=== PATIENT | female | born 2000 | race Caucasian/White ===

== ENCOUNTER → 2021-09-05 | Emergency (ER) | payer BC | END | disposition left against medical advice (07) | LOC: ER 17:54 | DX: R31.9 Hematuria, unspecified (principal); Z53.21 Procedure and treatment not carried out due to patient leaving prior to being seen by health care provider ==

== ENCOUNTER 2021-09-19 23:18 | Emergency (ER) | payer BC ==
[~2021-09-19] VITALS: Ht 162.6 cm; Wt 62.3 kg
--- NOTE | 2021-09-19 23:43 | PHYS DOC ---
Past History Past Medical History: Constipation General Adult HPI: HPI: ".. I ve been having some flank pain.. here on the Lt. and I noticed some blood in my urine.... I have been taking that pill that turns your urine red orange.. it been off and on the past week.. here on Lt. .." Patient is a 20 year old female who presents with above hx and complaints of Lt. flank pain. Pain has been intermittent over the past week. Patient has noted some hematuria. There is a family history of kidney stones with grandfather and her twin sister.. Patient denies any vaginal discharge. Patient denies any trauma. No recent travel. No history immunosuppression. 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 Mother is at bedside states she has had no rmal development since that time. Patient normally healthy. Review of Systems: Review of Systems: Constitutional: Denies fever or chills Eyes: Denies change in visual acuity HENT: Denies nasal congestion or sore throat Respiratory: Denies cough or shortness of breath Cardiovascular: Denies chest pain or edema GI: Complains of left flank abdominal pain, and nausea. Denies, vomiting, bloody stools or diarrhea : Denies dysuria Musculoskeletal: Complains of left flank back pain or joint pain Integument: Denies rash Neurologic: Denies headache, focal weakness or sensory changes Endocrine: Denies polyuria or polydipsia Lymphatic: Denies swollen glands Psychiatric: Denies depression or anxiety Family History: Family History: Grandfather has kidney stones Current Medications: Current Meds: See nursing for home meds Allergies: Allergies: No known drug allergies Physical Exam: PE: Constitutional: Well developed, well nourished, no acute distress, non-toxic appearance. [] HENT: Normocephalic, atraumatic, bilateral external ears normal, oropharynx moist, no oral exudates, nose normal. [] Eyes: PERRLA, EOMI, conjunctiva normal, no discharge. [] Neck: Normal range of motion, no tenderness, supple, no stridor. [] Cardiovascular:Heart rate regular rhythm, no murmur [] Lungs & Thorax: Bilateral breath sounds clear to auscultation [] Abdomen: Bowel sounds decreased, soft, no tenderness, no masses, no pulsatile m asses. No focal areas of rebound. Mild left flank tenderness on percussion. No true rebound pain. Skin: Warm, dry, no erythema, no rash. [] Back: No tenderness, no CVA tenderness. [] Extremities: No tenderness, no cyanosis, no clubbing, ROM intact, no edema. No psoas sign. Neurologic: Alert and oriented X 3, normal motor function, normal sensory function, no focal deficits noted. [] Psychologic: Affect anxious, judgement normal, mood normal. [] EKG: EKG: [] Radiology/Procedures: Radiology/Procedures: [[address] [address] IMAGING REPORT Signed PATIENT: ABDOUL BUTLER MACCOUNT: [id number] : 2000 LOCATION: ER AGE: 20 SEX: F EXAM STATUS: REG ER ORD. PHYSICIAN: ROMA RICHARDSON MD REASON: Renal colic Lt. PROCEDURE: CT ABDOMEN PELVIS WO CONTRAST EXAM: CT Abdomen and Pelvis without IV contrast CLINICAL HISTORY: Left flank pain. COMPARISON: none TECHNIQUE: Helical CT of the abdomen and pelvis without intravenous contrast. Ax ial, coronal and sagittal reformatted images were generated. PQRS compliance statement - One or more of the following individualized dose reduction techniques were utilized for this study: 1. Automated exposure control 2. Adjustment of the mA and/or kV according to patient size 3. Use of iterative reconstruction technique FINDINGS: Lack of intravenous contrast limits evaluation of solid organs, vasculature, and lymph nodes. Lower chest: Lung bases are clear. Abdomen and Pelvis: No focal liver lesion. Gallbladder is normal. Spleen, adrenal glands and pancreas are unremarkable. Multiple nonobstructing renal calculi are seen. Mild left hydronephrosis and hydroureter to the level of the left distal ureter where an 8 mm calculus is seen. Moderate colonic stool content is seen. No small or large bowel dilatation. No bowel obstruction. Appendix is normal. No abdominal or pelvic ascites. No abdominal pelvic lymphadenopathy. Bones: No aggressive osseous lesion is seen. IMPRESSION: 1. 8 mm calculus at the distal left ureter with moderate left hydronephrosis and hydroureter. 2. Multiple nonobstructing bilateral renal calculi. 3. Moderate colonic stool content. Electronically signed by: Remigio Mccollum MD (09/20/2021 2:52 AM) [facility] DICTATED AND SIGNED BY: REMIGIO MCCOLLUM MD DATE: 09/20/21246 CC: ROMA RICHARDSON MD; PCP,NO ~MTH0 0 ][address] [address] IMAGING REPORT Signed PATIENT: ABDOUL BUTLER MACCOUNT: [id number] : 2000 LOCATION: ER AGE: 20 SEX: F EXAM STATUS: REG ER ORD. PHYSICIAN: ROMA RICHARDSON MD REASON: Lt. Flank pain PROCEDURE: ACUTE ABDOMEN SERIES EXAM: Frontal view of the chest, AP views of the abdomen in upright and supine positions. CLINICAL INDICATION: Reason: Lt. Flank pain / Spl. Instructions: / History: COMPARISON: None. FINDINGS and IMPRESSION: The heart is not enlarged. Mediastinal and hilar contours are normal. No focal parenchymal airspace opacity. No pleural effusion or pneumothorax. No abnormal small or large bowel dilatation. Moderate colonic stool content. No abnormal soft tissue mass effect. No suspicious calcifications are seen. No free intraperitoneal gas. Electronically signed by: Remigio Mccollum MD (09/20/2021 2:44 AM) [facility] DICTATED AND SIGNED BY: REMIGIO MCCOLLUM MD DATE: 09/20/21243 CC: ROMA RICHARDSON MD; PCP,NO ~MTH0 0 Heart Score: C/O Chest Pain: N/A Risk Factors: Risk Factors: DM, Current or recent (<one month) smoker, HTN, HLP, family history of CAD, obesity. Risk Scores: Score 0 - 3: 2.5% MACE over next 6 weeks - Discharge Home Score 4 - 6: 20.3% MACE over next 6 weeks - Admit for Clinical Observation Score 7 - 10: 72.7% MACE over next 6 weeks - Early Invasive Strategies Course & Med Decision Making: Course & Med Decision Making Pertinent Labs and Imaging studies reviewed. (See chart for details) Patient push fluids. Take Tylenol and ibuprofen for pain. Follow-up urine culture. Follow-up primary care. Take Cipro 500 mg twice a day. Follow-up urology. Follow-up primary care. Return if any concerns. Zofran 8 for nausea and vomiting. Worse markedly severe pain may take Vicoprofen up to 4 times a day. If taking Vicoprofen take MOM 30 cc day. Save kidney stone if passed. Impression: 1. Renal Colic- 8mm Distal left kidney stone with hydro -nephrosis 2. UTI and hematuria 3. Constipation [] Dragon Disclaimer: Dragon Disclaimer: This electronic medical record was generated, in whole or in part, using a voice recognition dictation system. Departure Departure: Referrals: PCP,NO (PCP) Scripts Tamsulosin Hcl (FLOMAX) 0.4 Mg Cap.er.24h 0.4 MG PO DAILY for renal stone, #30 CAP.SR Prov: ROMA RICHARDSON MD 09/20/21 Hydrocodone/Ibuprofen (HYDROCODONE-IBUPROFEN 7.5-200 ) 1 Each Tablet 1 TAB PO PRN Q6HRS PRN for PAIN, #30 TAB 0 Refills Prov: ROMA RICHARDSON MD 09/20/21 Ondansetron (ONDANSETRON ODT) 8 Mg Tab.rapdis 8 MG PO QIDPRN PRN for NAUSEA/VOMITING, #30 TAB Prov: ROMA RICHARDSON MD 09/20/21 Ciprofloxacin (CIPRO) 500 Mg/5 Ml Hailey.mc.rec 500 MG PO BID for UTI for 7 Days, MISC Prov: ROMA RICHARDSON MD 09/20/21 Dragon Disclaimer This chart was dictated in whole or in part using Voice Recognition software in a busy, high-work load, and often noisy Emergency Department environment. It may contain unintended and wholly unrecognized errors or omissions. Dragon Disclaimer This chart was dictated in whole or in part using Voice Recognition software in a busy, high-work load, and often noisy Emergency Department environment. It may contain unintended and wholly unrecognized errors or omissions. Dragon Disclaimer This chart was dictated in whole or in part using Voice Recognition software in a busy, high-work load, and often noisy Emergency Department environment. It may contain unintended and wholly unrecognized errors or omissions. ROMA RICHARDSON MD Sep 19, 2021 23:42
[2021-09-20] MEDS ORDERED: IV RINGERS SOLUTION,LACTATED 1,000 ML IV SCH ×2 (01:15→02:00)
[2021-09-20] MEDS ORDERED: FAMOTIDINE 20 MG/2 ML VIAL IVP ONE (01:15)
[2021-09-20] MEDS ORDERED: ONDANSETRON PF 4 MG/2 ML VIAL. IVP ONE ×2 (01:15→02:00)
[2021-09-20 01:28] LABS: BASO % 0 % (0-3); EOS # 0.2 x10^3/uL (0.0-0.7); EOS % 2 % (0-3); HEMATOCRIT 40.1 % (36.0-47.0); HEMOGLOBIN 13.8 g/dL (12.0-15.5); LYMPH # 1.4 x10^3/uL (1.0-4.8); LYMPH % 14 % (24-48); MEAN CORPUSCULAR HEMOGLOBIN 32 pg (25-35); MEAN CORPUSCULAR HGB CONC 34 g/dL (31-37); MEAN CORPUSCULAR VOLUME 94 fL (79-100); MONO # 0.5 x10^3/uL (0.0-1.1); MONO % 5 % (0-9); NEUT # 7.7 x10^3uL (1.8-7.7); NEUT % 78 % (31-73); PLATELET COUNT 190 x10^3/uL (140-400); RED BLOOD COUNT 4.26 x10^6/uL (3.50-5.40); RED CELL DISTRIBUTION WIDTH 12.2 % (11.5-14.5); WHITE BLOOD COUNT 9.8 x10^3/uL (4.0-11.0)
[2021-09-20 01:37] LABS: CALCIUM 9.3 mg/dL (8.5-10.1); CREATININE 0.9 mg/dL (0.6-1.0); GFR 79.8; POTASSIUM 3.5 mmol/L (3.5-5.1)
[2021-09-20 01:38] LABS: BACTERIA,URINE 0 /HPF (0-FEW); BILIRUBIN,URINE NEG (NEG); CLARITY,URINE CLEAR; COLOR,URINE YELLOW; GLUCOSE,URINE 100 mg/dL (NEG); NITRITE,URINE POS (NEG); SQUAMOUS EPITHELIAL CELL,UR OCC /LPF; UROBILINOGEN,URINE 0.2 mg/dL (0.2 mg/dL); WBC,URINE OCC /HPF (0-4)
[2021-09-20 01:40] LABS: BARBITURATES NEG (NEG); BENZODIAZEPINES NEG (NEG); CANNABINOIDS NEG (NEG); COCAINE NEG (NEG); METHADONE NEG (NEG); OPIATES NEG (NEG); PHENCYCLIDINE NEG (NEG)
[2021-09-20 01:43] LABS: ALBUMIN 4.4 g/dL (3.4-5.0); DIRECT BILIRUBIN 0.2 mg/dL (0.0-0.2); TOTAL BILIRUBIN 0.6 mg/dL (0.2-1.0); TOTAL PROTEIN 7.5 g/dL (6.4-8.2)
[2021-09-20 01:46] LABS: AMPHETAMINE/METHAMPHETAMINE NEG (NEG)
[2021-09-20 01:47] LABS: U PREG PATIENT NEGATIVE (NEG)
[2021-09-20] MEDS ORDERED: KETOROLAC 30 MG/ML VIAL. IVP ONE (02:00)
[2021-09-20] MEDS ORDERED: TAMSULOSIN 0.4 MG CAP.ER.24H. PO ONE (02:00)
--- NOTE | 2021-09-20 02:47 | RAD ---
EXAM: Frontal view of the chest, AP views of the abdomen in upright and supine positions. CLINICAL INDICATION: Reason: Lt. Flank pain / Spl. Instructions: / History: COMPARISON: None. FINDINGS and IMPRESSION: The heart is not enlarged. Mediastinal and hilar contours are normal. No focal parenchymal airspace o pacity. No pleural effusion or pneumothorax. No abnormal small or large bowel dilatation. Moderate colonic stool content. No abnormal soft tissu e mass effect. No suspicious calcifications are seen. No free intraperitoneal gas. Electronically signed by: Remigio Mccollum MD (09/20/2021 2:44 AM) [facility]
--- NOTE | 2021-09-20 02:54 | RAD ---
EXAM: CT Abdomen and Pelvis without IV contrast CLINICAL HISTORY: Left flank pain. COMPARISON: none TECHNIQUE: Helical CT of the abdomen and pelvis without intravenous contrast. Axial, coronal and sagi ttal reformatted images were generated. PQRS compliance statement - One or more of the following individualized dose reduction techniques wer e utilized for this study: 1. Automated exposure control 2. Adjustment of the mA and/or kV according to patient size 3. Use of iterative reconstruction technique FINDINGS: Lack of intravenous contrast limits evaluation of solid organs, vasculature, and lymph nodes. Lower chest: Lung bases are clear. Abdomen and Pelvis: No focal liver lesion. Gallbladder is normal. Spleen, adrenal glands and pancreas are unremarkable. M ultiple nonobstructing renal calculi are seen. Mild left hydronephrosis and hydroureter to the level of the left distal ureter where an 8 mm calculus is seen. Moderate colonic stool content is seen. No small or large bowel dilatation. No bowel obstruction. Maite endix is normal. No abdominal or pelvic ascites. No abdominal pelvic lymphadenopathy. Bones: No aggressive osseous lesion is seen. IMPRESSION: 1. 8 mm calculus at the distal left ureter with moderate left hydronephrosis and hydroureter. 2. Multiple nonobstructing bilateral renal calculi. 3. Moderate colonic stool content. Electronically signed by: Remigio Mccollum MD (09/20/2021 2:52 AM) [facility]
[2021-09-20] MEDS ORDERED: cefTRIAXone SODIUM 1 GM VIAL ONE (03:02)
[2021-09-20] MEDS ORDERED: IV NORMAL SALINE 50ML 50 ML ONE (03:02)
[2021-09-20] MEDS ORDERED: ONDA8TAB15 PO (03:21)
[2021-09-20] MEDS ORDERED: CIPR500S2 PO (03:21)
[2021-09-20] MEDS ORDERED: HYDR-1179 PO (03:21)
[2021-09-20] MEDS ORDERED: TAMS0.4C97 PO (03:26)
[2021-09-20] MEDS ORDERED: MAGNESIUM HYDROXIDE 2,400 MG/30 ML ORAL.SUSP. PO ONE (03:30)
[2021-09-20 03:45] VITALS: BP 142/65
== END 2021-09-20 04:06 | disposition home or self-care (01) ==
LOC: ER 23:18
DX: N13.2 Hydronephrosis with renal and ureteral calculous obstruction (principal); N39.0 Urinary tract infection, site not specified; R31.9 Hematuria, unspecified; K59.00 Constipation, unspecified
CPT/HCPCS: 36415; 74022; 74176; 80048; 80076; 80307; 81001; 81025; 83690; 85025; 87086; 96361; 96365; 96375; 99285; J0696; J1885; J7120